=== PATIENT | male | born 1940 | race Caucasian/White ===

== ENCOUNTER 2018-08-06 12:30 | Inpatient (IN) | payer MEDICARE, OTHER ==
[~2018-08-06] VITALS: Ht 167.6 cm; Wt 98.4 kg
[~2018-08-06 12:30] MED LIST: ACAR50TA PO; APIX5TAB PO; LISI-622 PO; METO25XL PO; OMEP20CA10 PO; SIMV20TA6 PO; SOTA80 PO
[2018-08-06 12:48] LABS: GLUCOSE,POINT OF CARE 259 MG/DL (70-110)
[2018-08-06] MEDS ORDERED: INSREG SQ (12:48)
[2018-08-06 13:58] LABS: EOSINOPHILS % (AUTO) 3.8 % (1.0-6.0); HEMATOCRIT 37.5 % (41-53); HEMOGLOBIN 12.5 g/dL (13.5-17.5); LYMPHOCYTES # (AUTO) 1.3 K/uL (1.0-4.8); MEAN CORPUSCULAR HEMOGLOBIN 30.9 pg (26.0-34.0); MEAN CORPUSCULAR HGB CONC 33.4 G/dL (31.0-37.0); MEAN CORPUSCULAR VOLUME 93 fL (80-100); MONOCYTES # (AUTO) 0.8 K/uL (0.1-1.0); MONOCYTES % (AUTO) 11.6 % (2.0-9.0); NEUTROPHILS # (AUTO) 4.7 K/uL (1.8-7.7); NEUTROPHILS % (AUTO) 65.6 % (40.0-70.0); PLATELET COUNT (AUTO) 158 K/uL (150-450); RED BLOOD CELL COUNT(AUTO) 4.05 MIL/uL (4.50-5.90); RED CELL DISTRIBUTION WIDTH 14.4 % (11.5-14.5)
[2018-08-06 14:12] LABS: PROTHROMBIN TIME 10.8 SEC (9.4-11.6)
[2018-08-06] MEDS ORDERED: CefTRIAXone 1 GM/DEXTROSE 50 ML IV ONE (14:15)
[2018-08-06] MEDS ORDERED: AZITHROMYCIN 500 MG/NS 250 ML IV ONE (14:15)
[2018-08-06] MEDS ORDERED: SODIUM CHLORIDE 0.9% 3,000 ML IV ONE (14:15)
[2018-08-06 14:32] LABS: CALCIUM, TOTAL 9.1 mg/dL (8.8-10.5); CREATININE 1.83 mg/dL (0.60-1.30)
[2018-08-06 14:38] LABS: ALBUMIN 3.5 g/dL (3.4-5.0); BILIRUBIN,TOTAL 0.5 mg/dL (0.1-1.0); TOTAL PROTEIN, SERUM 7.2 g/dL (6.4-8.2)
[2018-08-06] MEDS ORDERED: SODIUM CHLORIDE 0.9% 1,000 ML IV ONE (15:15)
[2018-08-06] MEDS ORDERED: DEXTROSE 50%-WATER 25 GM/50 ML SYRINGE IVP PRN (15:15)
[2018-08-06 15:24] LABS: GLUCOSE,RANDOM 205 mg/dL (70-110)
[2018-08-06] MEDS: SODIUM CHLORIDE 0.9% 1,000 ML IV SCH (15:52)
[2018-08-06 15:58] LABS: APPEARANCE,URINE CLOUDY (CLEAR); GLUCOSE, URINE (UA) NEGATIVE (NEGATIVE); KETONES,URINE TRACE mg/dL (NEGATIVE); LEUKOCYTE ESTERASE ,URINE NEGATIVE (NEGATIVE); NITRATE,URINE NEGATIVE (NEGATIVE); OCCULT BLOOD,URINE NEGATIVE (NEGATIVE); PROTEIN,URINE SEE CONFIRM (NEGATIVE)
[2018-08-06 16:04] LABS: BILIRUBIN,URINE PRELIM. POSITIVE (NEGATIVE)
[2018-08-06 16:12] LABS: SULFOSALICYLIC ACID,URINE 3+ (Negative)
[2018-08-06 16:13] LABS: BACTERIA,URINE Moderate /HPF (None Seen); WBC,URINE 0-2 /HPF (0-5)
[2018-08-06 16:14] LABS: SQUAMOUS EPITHELIAL CELL,UR Few /LPF (None Seen)
[2018-08-06 16:16] LABS: MUCUS,URINE Few LPF (None Seen); RBC,URINE 0-2 /HPF (0-2)
[2018-08-06 17:55] VITALS: BP 137/77
[2018-08-06 20:46] VITALS: BP 130/72
[2018-08-06] MEDS: DOCUSATE SODIUM 100 MG CAPSULE PO SCH (21:05)
[2018-08-06] MEDS: APIXABAN 5 MG TABLET PO SCH (21:05)
[2018-08-06 21:16] LABS: GLUCOMETER DEV NAME(LOC) 5N.1; GLUCOSE,POINT OF CARE 116 MG/DL (70-110)
[2018-08-06 23:06] LABS: GLUCOMETER DEV NAME(LOC) 5N.1; GLUCOSE,POINT OF CARE 107 MG/DL (70-110)
[2018-08-07] VITALS (7 sets, daily range): BP systolic 100–145; BP diastolic 72–86
[2018-08-07] MEDS: SODIUM CHLORIDE 0.9% 1,000 ML IV SCH ×2 (00:27→08:22)
[2018-08-07 06:24] LABS: ANION GAP 8 mmol/L (8-16); CALCIUM, TOTAL 8.1 mg/dL (8.8-10.5); CARBON DIOXIDE 23 mmol/L (22-29); CHLORIDE 112 mmol/L (98-107); CREATININE 1.12 mg/dL (0.60-1.30); GLUCOSE,RANDOM 110 mg/dL (70-110); POTASSIUM 4.1 mmol/L (3.5-5.1); SODIUM SERUM 143 mmol/L (136-145); UREA NITROGEN, BLOOD 20 mg/dL (7-18)
[2018-08-07 06:35] LABS: GLOMERULAR FILTR. RATE CALC > 60 mL/min (>60)
[2018-08-07 06:39] LABS: GLUCOMETER DEV NAME(LOC) 5N.1; GLUCOSE,POINT OF CARE 107 MG/DL (70-110)
[2018-08-07] MEDS ORDERED: METOPROLOL TARTRATE 25 MG TABLET PO SCH (08:00)
[2018-08-07] MEDS: APIXABAN 5 MG TABLET PO SCH ×2 (08:22→20:20)
[2018-08-07] MEDS: FAMOTIDINE 20 MG TABLET PO SCH (08:22)
[2018-08-07] MEDS: DOCUSATE SODIUM 100 MG CAPSULE PO SCH ×2 (08:22→20:21)
[2018-08-07] MEDS: CefTRIAXone 1 GM/DEXTROSE 50 ML IV SCH (14:38)
[2018-08-07] MEDS: AZITHROMYCIN 500 MG/NS 250 ML IV SCH (15:20)
[2018-08-07] MEDS: INSULIN LISPRO 100 UNITS/ML SQ PRN (20:19)
[2018-08-07] MEDS: METOPROLOL TARTRATE 25 MG TABLET PO SCH (20:21)
[2018-08-07 21:13] LABS: GLUCOMETER DEV NAME(LOC) 5N.1; GLUCOSE,POINT OF CARE 149 MG/DL (70-110)
[2018-08-07] MEDS: ACETAMINOPHEN 325 MG TABLET PO PRN (23:41)
[2018-08-08 05:50] VITALS: BP 145/80
[2018-08-08 07:40] VITALS: BP 157/89
[2018-08-08 08:17] LABS: BASOPHILS % (AUTO) 0.8 % (0.0-2.0); HEMOGLOBIN 11.2 g/dL (13.5-17.5); LYMPHOCYTES # (AUTO) 1.8 K/uL (1.0-4.8); LYMPHOCYTES % (AUTO) 27.5 % (22.0-44.0); MEAN CORPUSCULAR HEMOGLOBIN 31.2 pg (26.0-34.0); MEAN CORPUSCULAR HGB CONC 34.1 G/dL (31.0-37.0); MEAN CORPUSCULAR VOLUME 92 fL (80-100); MONOCYTES # (AUTO) 0.8 K/uL (0.1-1.0); MONOCYTES % (AUTO) 12.8 % (2.0-9.0); NEUTROPHILS # (AUTO) 3.4 K/uL (1.8-7.7); NEUTROPHILS % (AUTO) 51.9 % (40.0-70.0); PLATELET COUNT (AUTO) 131 K/uL (150-450); RED CELL DISTRIBUTION WIDTH 14.1 % (11.5-14.5)
[2018-08-08 08:30] LABS: ALANINE AMINOTRANSFERASE 23 U/L (12-78); ALBUMIN 3.1 g/dL (3.4-5.0); ALKALINE PHOSPHATASE 59 U/L (46-116); ANION GAP 10 mmol/L (8-16); ASPARTATE AMINOTRANSFERASE 27 U/L (15-37); BILIRUBIN,TOTAL 0.6 mg/dL (0.1-1.0); CALCIUM, TOTAL 8.8 mg/dL (8.8-10.5); CARBON DIOXIDE 24 mmol/L (22-29); CHLORIDE 106 mmol/L (98-107); CREATININE 1.07 mg/dL (0.60-1.30); GLUCOSE,RANDOM 100 mg/dL (70-110); POTASSIUM 3.8 mmol/L (3.5-5.1); SODIUM SERUM 140 mmol/L (136-145); TOTAL PROTEIN, SERUM 6.3 g/dL (6.4-8.2)
[2018-08-08 08:33] LABS: GLOMERULAR FILTR. RATE CALC > 60 mL/min (>60)
[2018-08-08 08:40] LABS: UREA NITROGEN, BLOOD 15 mg/dL (7-18)
[2018-08-08] MEDS: DOCUSATE SODIUM 100 MG CAPSULE PO SCH ×2 (09:24→20:49)
[2018-08-08] MEDS: FAMOTIDINE 20 MG TABLET PO SCH (09:24)
[2018-08-08] MEDS: METOPROLOL TARTRATE 25 MG TABLET PO SCH ×2 (09:25→20:49)
[2018-08-08] MEDS: APIXABAN 5 MG TABLET PO SCH ×2 (09:25→20:49)
[2018-08-08 11:44] VITALS: BP 170/90
[2018-08-08] MEDS: INSULIN LISPRO 100 UNITS/ML SQ PRN ×2 (11:55→18:05)
[2018-08-08 12:00] VITALS: BP 153/85
[2018-08-08] MEDS ORDERED: SODIUM CHLORIDE 0.9% 250 ML IV ONE (12:02)
[2018-08-08] MEDS: CefTRIAXone 1 GM/DEXTROSE 50 ML IV SCH (12:07)
[2018-08-08] MEDS: ACETAMINOPHEN 325 MG TABLET PO PRN (12:14)
[2018-08-08] MEDS: AZITHROMYCIN 500 MG/NS 250 ML IV SCH (12:39)
[2018-08-08] MEDS ORDERED: METOPROLOL TARTRATE 25 MG TABLET PO ONE (13:15)
[2018-08-08] MEDS ORDERED: ONDANSETRON HCL 4 MG/2 ML VIAL IM PRN (13:15)
[2018-08-08 15:39] VITALS: BP 115/63
[2018-08-08] MEDS ORDERED: DIGOXIN 250 MCG/ML 2 ML AMP IVP ONE (17:45)
[2018-08-08] MEDS ORDERED: ONDANSETRON HCL 4 MG/2 ML VIAL IVP PRN (19:15)
[2018-08-08 20:00] VITALS: BP_SYST 111; BP_SYST 126; BP_DIAS 49; BP_DIAS 60
[2018-08-09 00:55] VITALS: BP 115/60
[2018-08-09 05:28] VITALS: BP 108/57
[2018-08-09 06:03] LABS: BASOPHILS % (AUTO) 1.1 % (0.0-2.0); EOSINOPHILS % (AUTO) 3.7 % (1.0-6.0); HEMATOCRIT 32.8 % (41-53); HEMOGLOBIN 11.3 g/dL (13.5-17.5); LYMPHOCYTES # (AUTO) 1.2 K/uL (1.0-4.8); LYMPHOCYTES % (AUTO) 19.7 % (22.0-44.0); MEAN CORPUSCULAR HEMOGLOBIN 31.7 pg (26.0-34.0); MEAN CORPUSCULAR HGB CONC 34.3 G/dL (31.0-37.0); MEAN CORPUSCULAR VOLUME 92 fL (80-100); MONOCYTES % (AUTO) 16.2 % (2.0-9.0); NEUTROPHILS # (AUTO) 3.7 K/uL (1.8-7.7); NEUTROPHILS % (AUTO) 59.3 % (40.0-70.0); PLATELET COUNT (AUTO) 125 K/uL (150-450); RED BLOOD CELL COUNT(AUTO) 3.55 MIL/uL (4.50-5.90); RED CELL DISTRIBUTION WIDTH 13.8 % (11.5-14.5)
[2018-08-09 06:14] LABS: GLUCOMETER DEV NAME(LOC) 5S.1; GLUCOSE,POINT OF CARE 136 MG/DL (70-110)
[2018-08-09 06:14] LABS: GLUCOMETER DEV NAME(LOC) 5S.1; GLUCOSE,POINT OF CARE 125 MG/DL (70-110)
[2018-08-09 06:15] LABS: GLUCOMETER DEV NAME(LOC) 5S.1; GLUCOSE,POINT OF CARE 88 MG/DL (70-110)
[2018-08-09 06:52] LABS: ALANINE AMINOTRANSFERASE 19 U/L (12-78); ALBUMIN 2.9 g/dL (3.4-5.0); ALKALINE PHOSPHATASE 49 U/L (46-116); ANION GAP 9 mmol/L (8-16); ASPARTATE AMINOTRANSFERASE 25 U/L (15-37); BILIRUBIN,TOTAL 0.6 mg/dL (0.1-1.0); CALCIUM, TOTAL 8.5 mg/dL (8.8-10.5); CARBON DIOXIDE 25 mmol/L (22-29); CHLORIDE 103 mmol/L (98-107); CREATININE 1.15 mg/dL (0.60-1.30); GLUCOSE,RANDOM 101 mg/dL (70-110); POTASSIUM 4.2 mmol/L (3.5-5.1); SODIUM SERUM 137 mmol/L (136-145); TOTAL PROTEIN, SERUM 6.1 g/dL (6.4-8.2); UREA NITROGEN, BLOOD 13 mg/dL (7-18)
[2018-08-09 07:02] LABS: GLOMERULAR FILTR. RATE CALC > 60 mL/min (>60)
[2018-08-09 07:26] VITALS: BP 103/61
[2018-08-09] MEDS: APIXABAN 5 MG TABLET PO SCH (08:14)
[2018-08-09] MEDS: FAMOTIDINE 20 MG TABLET PO SCH (08:14)
[2018-08-09] MEDS: METOPROLOL TARTRATE 25 MG TABLET PO SCH (08:14)
[2018-08-09] MEDS: DOCUSATE SODIUM 100 MG CAPSULE PO SCH (08:14)
[2018-08-09] MEDS: ACETAMINOPHEN 325 MG TABLET PO PRN (08:25)
[2018-08-09 10:59] LABS: GLUCOMETER DEV NAME(LOC) 5N.1; GLUCOSE,POINT OF CARE 101 MG/DL (70-110)
[2018-08-09 10:59] LABS: GLUCOMETER DEV NAME(LOC) 5N.1; GLUCOSE,POINT OF CARE 83 MG/DL (70-110)
[2018-08-09 10:59] LABS: GLUCOMETER DEV NAME(LOC) 5N.1; GLUCOSE,POINT OF CARE 132 MG/DL (70-110)
[2018-08-09 10:59] LABS: GLUCOMETER DEV NAME(LOC) 5N.1; GLUCOSE,POINT OF CARE 95 MG/DL (70-110)
[2018-08-09 11:06] VITALS: BP 110/60
[2018-08-09] MEDS ORDERED: AMOX1TAB16 PO (14:35)
[2018-08-09 15:09] VITALS: BP 104/58
[2018-08-09 21:24] LABS: GLUCOMETER DEV NAME(LOC) 5S.1; GLUCOSE,POINT OF CARE 128 MG/DL (70-110)
== END 2018-08-09 15:20 | disposition home or self-care (01) | DRG 871 ==
LOC: EMS 12:31 → 5S 15:24
PROVIDERS: ADMIT Internal Medicine; ATTEND Internal Medicine
DX: A41.9 Sepsis, unspecified organism (principal); R65.21 Severe sepsis with septic shock; J18.9 Pneumonia, unspecified organism; N17.9 Acute kidney failure, unspecified; E44.0 Moderate protein-calorie malnutrition; I48.2 Chronic atrial fibrillation; E11.9 Type 2 diabetes mellitus without complications; F41.9 Anxiety disorder, unspecified; E66.01 Morbid (severe) obesity due to excess calories; I10 Essential (primary) hypertension; E78.00 Pure hypercholesterolemia, unspecified; Z68.35 Body mass index [BMI] 35.0-35.9, adult; Z79.01 Long term (current) use of anticoagulants
CPT/HCPCS: 70450; 82947; 83605; 84145; 87040; 87086; 93005; 96365; 96368; 99291; G0378; J0456; J0696; J1160; J2405; J7030; J7050